=== PATIENT | male | born 1975 | race Caucasian/White ===

== ENCOUNTER 2025-02-13 11:03 | Emergency (ER) | payer OTHER ==
[~2025-02-13] VITALS: Ht 182.9 cm; Wt 93.8 kg
--- NOTE | 2025-02-13 13:18 | Physician Documentation ---
History of Present Illness ~ Chief Complaint: Leg Pain Stated Complaint: R/O L LEG DVT Time Seen by MD: 11:38 Primary Medical Doctor: NONE Mode of Arrival: POV HPI This is a 49-year-old male who presents with left posterior calf pain, patient reports recent surgery on his left ankle and was directed by his orthopedist to come to the emergency department for evaluation for possible DVT patient reports that he has follow up with his orthopedic surgeon in the next two weeks. Reports no chest pain or shortness of breath, patient reports no other acute symptoms or concerns. Patient reports pain is currently controlled with [id number] medications. Tetanus witin 5 years: Yes Medication Reconciliation Allergies: Coded Allergies: No Known Allergies (Unverified , 02/13/25) Past Medical History Past Medical History: No Pertinent History Past Surgical History: orthopedic surgeries Review of Systems ROS As stated above in the HPI, otherwise all systems are reviewed and negative. Physical Exam Vital Signs: Heart Rate: 89, Respiratory Rate: 18, BP: 133/83, Pulse Oximetry: 98, Weight: 93.800 Oxygen Flow Rate: 0 Physical Exam VITALS: Reviewed and as above. GENERAL: Alert, nontoxic appearing, no apparent distress. RESPIRATORY: No increased work of breathing, no respiratory distress, speaking in full clear sentences CV: Brisk capillary refill to left foot, left pedal pulse intact MUSCULOSKELETAL: Left posterior calf tender to palpation, no significant swelling as compared to right calf, range of motion intact in left toes NEURO: Sensation intact in left foot and toes Progress Results/Orders Results/Orders Orders - ALEX CHUN Venous (02/13/25 11:54) Completed Orders - ALEX CHUN Venous (02/13/25 11:54) Vital Signs 02/13/25 02/13/25 02/13/25 02/13/25 11:27 11:45 11:48 12:48 Pulse 82 90 89 Resp 16 18 18 B/P (MAP) 114/72 129/85 (100) 133/83 (100) Pulse Ox 100 99 98 O2 Flow Rate 0 0 0 02/13/25 13:30 Pulse 67 Resp 18 B/P (MAP) 115/74 Pulse Ox 98 EKG/XRAY/CT/US/VASC/MRI Vascular : Impression Exam Name: VENOUS Technologist: Left lower extremity venous duplex Clinical History: Left leg pain and swelling Comparison: None Technique: Duplex Doppler evaluation of the deep venous system of the left lower extremity from the common femoral vein to the popliteal vein including color Doppler and spectral/pulsed waveform analysis was performed. Findings: The common femoral vein demonstrates appropriate compressibility and waveform variability. There is compressibility/patency of the great saphenous vein at the proximal thigh. The femoral vein demonstrates appropriate compressibility and waveform variability. The deep femoral vein demonstrates appropriate compressibility and waveform variability. The popliteal vein demonstrates appropriate compressibility and waveform variability. There is normal compressibility at the tibioperoneal trunk. Impression: No left femoropopliteal venous thrombosis. Contralateral common femoral vein is patent. Dictated by:ROBBIE MOROCHO MD Dictation date and time:02/13/25 132 Electronically Signed by: ROBBIE MOROCHO MD Date and Time: 02/13/25 132 Transcribed: EWELINA Transcribed: Medical Decision Making Findings This 49-year-old male presented with left posterior calf pain after recent surgery to his left ankle, patient has been directed to the emergency department by his orthopedist for evaluation for possible DVT, vascular ultrasound was obtained and demonstrated no evidence of DVT. Reassuring patient reported no chest pain or shortness of breath to suggest pulmonary embolism and patient was hemodynamically stable. This is a did not have evidence of infection and patient reported no fever, chills, or other symptoms to suggest infection. Suspect pain to calf is related to recent surgery. The limb is neurovascularly intact and patient reported pain is currently well controlled with [id number] medications patient is appropriate follow up with his orthopedic surgeon as scheduled. Patient provided home care instructions, return to care precautions, and follow up instructions which verbalized understanding of General Diff Dx:Considerations: Include: Neurovascular injury, Other (DVT, PE, surgical site infection, cellulitis, abscess) Departure Time of Disposition: 13:17 Disposition: 01 HOME / SELF CARE / HOMELESS Impression: Primary Impression: Pain of left calf Condition: Improved Additional Instructions: Your ultrasound did not show evidence of a blood clot. Follow up as scheduled with your orthopedist. May use ibuprofen and or Tylenol as needed for pain. Please follow up with your primary care provider in the next few days. Please return to the emergency department for any new or worsening concerning symptoms. Referrals: NO PRIMARY CARE PROVIDER (PCP) Education Educated: Patient Educated regarding: diagnosis, treatment, prognosis, need for follow up Signature Scribe Signature: No scribe Attestation: The note accurately reflects work and decisions made by me.REGULO Manzo 02/14/25 09:56 ALEX CHUN Feb 13, 2025 13:18
--- NOTE | 2025-02-13 13:23 | VASCULAR REPORT ---
Left lower extremity venous duplex Clinical History: Left leg pain and swelling Comparison: None Technique: Duplex Doppler evaluation of the deep venous system of the left lower extremity from the common femoral vein to the popliteal vein including color Doppler and spectral/pulsed waveform analysis was performed. Findings: The common femoral vein demonstrates appropriate compressibility and waveform variability. There is compressibility/patency of the great saphenous vein at the proximal thigh. The femoral vein demonstrates appropriate compressibility and waveform variability. The deep femoral vein demonstrates appropriate compressibility and waveform variability. The popliteal vein demonstrates appropriate compressibility and waveform variability. There is normal compressibility at the tibioperoneal trunk. Impression: No left femoropopliteal venous thrombosis. Contralateral common femoral vein is patent.
[2025-02-13 13:30] VITALS: BP 115/74; PULSE 67; RESP 18; O2SAT 98
== END 2025-02-13 13:31 | disposition home or self-care (01) ==
LOC: ER 11:05
DX: M79.662 Pain in left lower leg (principal); Z98.890 Other specified postprocedural states
CPT/HCPCS: 93971; 99284